=== PATIENT | male | born 1935 | race American Indian/Alaskan Native ===

== ENCOUNTER 2017-02-18 22:10 | Inpatient (IN) | payer MEDICARE ==
--- NOTE | 2017-02-18 22:13 | ED PDOC ---
Arrival/HPI - General Time Seen by Provider: 02/18/17 22:12 Historian: Patient - Critical Care Critical Care Minutes: 30 minutes - History of Present Illness Narrative History of Present Illness (Text): 02/18/17 22:12 63 year old male brought in by EMS with altered mental status. EMS reports patient called EMS to his house for difficulty breathing, answered the door asking for help and collapsed into EMS's arms. Patient arrives to the emergency department non-verbal, altered, with R gaze deviation, and not moving any extremities. Code stroke called on arrival. [id number] Time/Duration: Prior to Arrival Symptom Onset: Sudden Activities at Onset: Light Context: Home Past Medical History - Provider Review Nursing Documentation Reviewed: Yes Family/Social History - Physician Review Nursing Documentation Reviewed: Yes Family/Social History: No Known Family HX Allergies/Home Meds Allergies/Adverse Reactions: Allergies No Known Allergies Allergy (Unverified 02/18/17 22:13) Home Medications: Home Meds Medication Instructions Recorded Confirmed Unobtainable 02/18/17 02/18/17 Review of Systems - Review of Systems Systems not reviewed;Unavailable: Altered Mental Status Physical Exam Vital Signs Reviewed: Yes Vital Signs Temp Pulse Resp BP Pulse Ox 02/19/17 00:00 71 18 135/92 H 98 02/18/17 23:09 162/76 H 02/18/17 22:34 83 18 199/98 H 100 02/18/17 22:32 98.2 F 02/18/17 22:16 80 26 H 246/110 H 100 Temperature: Afebrile Blood Pressure: Hypertensive Pulse: Regular Respiratory Rate: Normal Appearance: Positive for: Other (No movement to sternal rub; Non-verbal) - Systems Exam Head: Present: Atraumatic, Normocephalic Ears: Present: NORMAL TM Mouth: Present: Other (Positive Gag) Respiratory/Chest: Present: Wheezes, Decreased Breath Sounds, Rales. No: Respiratory Distress Cardiovascular: Present: Regular Rate and Rhythm, Normal S1, S2. No: Murmurs Abdomen: Present: Normal Bowel Sounds. No: Tenderness, Distention, Peritoneal Signs Neurological: Present: Other (Right-sided gaze deviation) Medical Decision Making ED Course and Treatment: 02/18/17 22:12 Impression: 63 year old male brought in by EMS presenting with difficulty breathing prior to arrival and AMS on arrival. Plan: -- EKG -- Head CT w/o contrast -- Chest X-ray -- Type and Screen -- Labs -- Reassess and disposition Progress Notes: 02/18/17 22:12 Code Stroke called on patient. 02/18/17 22:[address] Webber, neuro laborer prestressed concrete 02/18/17 22:33 CT shows "No acute intracranial hemorrhage, or suspicious mass effect. Ativan 2mg given due to concern for seizure. On reevaluation after CT, patient is moving bilateral extremities and has slurred speech. Patient pulled out nasal trumpet with right hand and is moving his left arm. EKg shows NSR at 81bpm with 1st degree V block. t wave inversions in lateral leads, unchanged from prior. Trop x 1 negative. Aspirin ordered. 02/18/17 22:[address] Webber, who confirms patient as not a TPA candidate due to ?seizure and no focal deficits. 02/18/17 23:09 Cardene drip started for ?hypertensive encephalopathy. BNP elevated and lasix ordered. Duonebs and steroids given for COPD. After BP normalized, patient is now AAOx3 and reporting that his name is [facility]. Cardene drip discontinued after BP normalized. 02/18/17 23:31 CT Head Without Intravenous Contrast: Dictated and Authenticated by: Yancy Jimenez MD FINDINGS: Brain: No acute intracranial hemorrhage. Age-appropriate periventricular white matter disease. No edema. Ventricles: Age-appropriate ventriculomegaly. Bones: No acute displaced fracture. Sinuses: Unremarkable as visualized. No acute sinusitis. Mastoid air cells: Unremarkable as visualized. No mastoid effusion. IMPRESSION: No acute intracranial hemorrhage, or suspicious mass effect. 02/18/17 23:33 02/18/17 23:[address] Pitts. Will admit to tele to hospitalist for chf and copd, with ? new onset seizure vs hypertensive encephalopathy. Bipap ordered due to abg showing retention. - Lab Interpretations Lab Results: 02/18/17 22:28 02/18/17 22:28 Lab Results 02/18/17 23:08: pCO2 64 H, pO2 258.0 H, HCO3 27.4, ABG pH 7.24 L, ABG Total CO2 29.4 H, ABG O2 Saturation 99.9 H, ABG O2 Content 16.1, ABG Base Excess -1.0, ABG Hemoglobin 11.3 L, ABG Carboxyhemoglobin 1.7 H, POC ABG HHb (Measured) 0.1, ABG Methemoglobin 1.0, ABG O2 Capacity 16.1, Hgb O2 Saturation 97.3, FiO2 40.0 02/18/17 23:03: Urine Opiates Screen Negative, Urine Methadone Screen Negative, Ur Barbiturates Screen Negative, Ur Phencyclidine Scrn Negative, Ur Amphetamines Screen Negative, U Benzodiazepines Scrn Negative, U Oth Cocaine Metabols Negative, U Cannabinoids Screen Negative 02/18/17 23:03: Urine Color Yellow, Urine Appearance Clear, Urine pH 6.0, Ur Specific [place] >= 1.030, Urine Protein 100 H, Urine Glucose (UA) >=1000, Urine Ketones Negative, Urine Blood Trace-intact H, Urine Nitrate Negative, Urine Bilirubin Negative, Urine Urobilinogen 0.2, Ur Leukocyte Esterase Negative , Urine RBC 1 - 3, Urine WBC 0 - 2, Ur Epithelial Cells 0 - 2, Amorphous Sediment Few, Urine Bacteria Mod 02/18/17 23:02: Blood Type O POSITIVE, Antibody Screen Negative, BBK History Checked No verified bt 02/18/17 22:41: Alcohol, Quantitative < 10 02/18/17 22:41: Salicylates < 1 L, Acetaminophen < 10.0 L 02/18/17 22:40: pO2 146 H, VBG pH 7.07 L*, VBG pCO2 84.0 H*, VBG HCO3 24.3, VBG Total CO2 26.9, VBG O2 Sat (Calc) 99.1 H, VBG Base Excess -7.7 L, VBG Potassium 5.2, Glucose 290 H, Lactate 3.4 H, FiO2 21.0, Sodium 134.0, Chloride 101.0, Venous Blood Potassium 5.2 02/18/17 22:28: Sodium 137, Potassium 5.4 H, Chloride 100, Carbon Dioxide 25, Anion Gap 17, BUN 15, Creatinine 1.5, Est GFR ( Amer) 57, Est GFR (Non- Af Amer) 47, Random Glucose 272 H, Calcium 9.3, Phosphorus 5.9 H, Magnesium 2.3 H, Total Bilirubin 0.5, AST 85 H, ALT 82 H, Alkaline Phosphatase 96, Troponin I 0.04, NT-Pro-B Natriuret Pep 4830 H, Total Protein 6.9, Albumin 4.3, Globulin 2.6, Albumin/Globulin Ratio 1.7, Triglycerides 84, Cholesterol 167, LDL Cholesterol Direct 92, HDL Cholesterol 67 H 02/18/17 22:28: PT 11.4, INR 1.04, APTT 28.0 02/18/17 22:28: WBC 7.7, RBC 4.13, Hgb 12.5 L, Hct 37.5 L, MCV 90.8, MCH 30.3, MCHC 33.3, RDW 14.0, Plt Count 370, MPV 9.6, Gran % 51.4, Lymph % (Auto) 33.6, Gila % (Auto) 10.7 H, Eos % (Auto) 3.8, Baso % (Auto) 0.5, Gran # 3.94, Lymph # 2.6, Gila # 0.8 H, Eos # 0.3, Baso # 0.04 I have reviewed the lab results: Yes - RAD Interpretation Radiology Orders: 02/18/17 22:13 CHEST PORTABLE [RAD] Stat 02/18/17 22:14 HEAD W/O (CODE STROKE) [CT] Stat - Medication Orders Current Medication Orders: Discontinued Medications Albuterol/Ipratropium (Duoneb 3 Mg/0.5 Mg (3 Ml) Ud) 3 ml IH STAT STA Stop: 02/18/17 23:18 Last Admin: 02/18/17 23:30 Dose: 3 ml Aspirin (Aspirin Chewable) 324 mg PO STAT STA Stop: 02/18/17 23:21 Last Admin: 02/19/17 00:09 Dose: 324 mg Furosemide (Lasix) 40 mg IVP STAT STA Stop: 02/18/17 23:01 Last Admin: 02/18/17 23:09 Dose: 40 mg MAR Blood Pressure Document 02/18/17 23:09 SC (Rec: 02/18/17 23:10 SC [id number]) Blood Pressure Blood Pressure (100/60-150/90) 162/76 IVP Administration Document 02/18/17 23:09 SC (Rec: 02/18/17 23:10 SC [id number]) Charges for Administration # of IVP Administrations 1 Methylprednisolone (Solu-Medrol) 125 mg IVP STAT STA Stop: 02/18/17 23:18 Last Admin: 02/19/17 00:09 Dose: 125 mg IVP Administration Document 02/19/17 00:09 SC (Rec: 02/19/17 00:09 SC [id number]) Charges for Administration # of IVP Administrations 1 - Scribe Statement The provider has reviewed the documentation as recorded by the Abdulazizibneo Dia Provider Scribe Attestation: All medical record entries made by the Abdulazizibe were at my direction and personally dictated by me. I have reviewed the chart and agree that the record accurately reflects my personal performance of the history, physical exam, medical decision making, and the department course for this patient. I have also personally directed, reviewed, and agree with the discharge instructions and disposition. Disposition/Present on Arrival - Present on Arrival Any Indicators Present on Arrival: No - Disposition Have Diagnosis and Disposition been Completed?: Yes Diagnosis: CHF (congestive heart failure), COPD (chronic obstructive pulmonary disease), Altered mental status Disposition: HOSPITALIZED Disposition Time: 23:33 Patient Plan: Admission Condition: FAIR
[2017-02-18 22:14] VITALS: BMI 25.7
[2017-02-18] MEDS ORDERED: Nicardipine 20 MG/200 ML 20 MG/200 ML BAG IV PRN (22:26)
[2017-02-18 22:32] LABS: BASO # 0.04 K/mm3 (0.0-2.0); BASO % 0.5 % (0.0-3.0); EOS # 0.3 (0.0-0.7); EOS % 3.8 % (1.5-5.0); GRAN # 3.94 (1.4-6.5); GRAN % 51.4 % (50.0-68.0); HEMATOCRIT 37.5 % (42.0-52.0); LYMPH # 2.6 (1.2-3.4); LYMPH % 33.6 % (22.0-35.0); MEAN CELL VOLUME 90.8 fl (80.0-105.0); MEAN CORPUSCULAR HEMOGLOBIN 30.3 pg (25.0-35.0); MEAN CORPUSCULAR HGB CONC 33.3 g/dl (31.0-37.0); MEAN PLATELET VOLUME 9.6 fl (7.0-11.0); MONO # 0.8 (0.1-0.6); MONO % 10.7 % (1.0-6.0); WHITE BLOOD COUNT 7.7 10^3/ul (4.5-11.0)
--- NOTE | 2017-02-18 22:33 | CT ---
EXAM: CT Head Without Intravenous Contrast CLINICAL HISTORY: 63 years old, male; Signs and symptoms; Other: Code stroke; Additional info: AMS TECHNIQUE: Axial computed tomography images of the head/brain without intravenous contrast. All CT scans at this facility use one or more dose reduction techniques, viz.: automated exposure control; ma/kV adjustment per patient size (including targeted exams where dose is matched to indication; i.e. head); or iterative reconstruction technique. COMPARISON: No relevant prior studies available. Examination is markedly limited by significant amount of motion artifact. FINDINGS: Brain: No acute intracranial hemorrhage. Age-appropriate periventricular white matter disease. No edema. Ventricles: Age-appropriate ventriculomegaly. Bones: No acute displaced fracture. Sinuses: Unremarkable as visualized. No acute sinusitis. Mastoid air cells: Unremarkable as visualized. No mastoid effusion. IMPRESSION: No acute intracranial hemorrhage, or suspicious mass effect.
[2017-02-18] MEDS ORDERED: Albuterol-Ipratrop 3 mg / 0.5 (3 ml) UD ONE (22:42)
[2017-02-18 22:43] LABS: ALB/GLOB RATIO 1.7 (1.1-1.8); BILIRUBIN,TOTAL 0.5 mg/dL (0.2-1.3); CALCIUM 9.3 mg/dL (8.4-10.5); MAGNESIUM 2.3 mg/dL (1.7-2.2); PHOSPHOROUS 5.9 mg/dL (2.5-4.5); POTASSIUM 5.4 mmol/L (3.6-5.0); TOTAL PROTEIN 6.9 g/dL (5.8-8.3)
[2017-02-18 22:44] LABS: VENOUS BLOOD GAS BASE EXCESS -7.7 mmol/L (0.0-2.0)
[2017-02-18 22:49] LABS: VENOUS BLOOD PH 7.07 (7.32-7.43)
[2017-02-18 22:53] LABS: TROPONIN I 0.04 ng/mL
[2017-02-18 23:00] LABS: INR 1.04 (0.93-1.08)
[2017-02-18 23:11] LABS: URINE BILIRUBIN NEGATIVE (NEGATIVE); URINE BLOOD TRACE-INTACT (NEGATIVE); URINE GLUCOSE (UA) >=1000 mg/dL (NEGATIVE); URINE KETONE NEGATIVE (NEGATIVE); URINE LEUKOCYTE ESTERASE NEGATIVE Leu/uL (NEGATIVE); URINE PROTEIN 100 mg/dL (<30 mg/dL); URINE UROBILINOGEN 0.2 E.U./dL (<1 E.U./dL)
[2017-02-18 23:12] LABS: ARTERIAL BLOOD GAS HCO3 27.4 mmol/L (21-28); ARTERIAL BLOOD GAS O2 CAPACITY 16.1 mL/dl (16-24); ARTERIAL BLOOD GAS O2 CONTENT 16.1 ML/dl (15-23); ARTERIAL BLOOD GAS PH 7.24 (7.35-7.45); ARTERIAL BLOOD HGB O2 SAT 97.3 % (95.0-98.0); CARBOXYHEMOGLOBIN 1.7 % (0.5-1.5); HHB 0.1 % (0-5)
[2017-02-18 23:15] LABS: URINE APPEARANCE CLEAR (CLEAR); URINE COLOR YELLOW (YELLOW)
[2017-02-18] MEDS ORDERED: Albuterol-Ipratrop 3 mg / 0.5 (3 ml) UD IH STA (23:17)
[2017-02-18 23:46] LABS: URINE BACTERIA MOD (NEG); URINE EPITHELIAL CELLS 0 - 2 /hpf (0-5); URINE WBC 0 - 2 /hpf (0-6)
[2017-02-18 23:47] LABS: URINE AMORPHOUS SEDIMENT FEW
[2017-02-19] MEDS ORDERED: Albuterol-Ipratrop 3 mg / 0.5 (3 ml) UD IH PRN (01:16)
[2017-02-19] MEDS ORDERED: Dextrose 50% SYRINGE Inj (50 ml) IVP ONE (01:16)
[2017-02-19] MEDS ORDERED: Insulin Regular 1 UNITS/0.01 ML ML IVP ONE (01:31)
[2017-02-19 02:48] LABS: VENOUS BLOOD GAS BASE EXCESS 2.8 mmol/L (0.0-2.0); VENOUS BLOOD PH 7.28 (7.32-7.43)
[2017-02-19] MEDS: Albuterol-Ipratrop 3 mg / 0.5 (3 ml) UD IH SCH ×2 (03:37→07:26)
[2017-02-19 04:56] LABS: ARTERIAL BLOOD GAS HCO3 27.8 mmol/L (21-28); ARTERIAL BLOOD GAS O2 CAPACITY 15.1 mL/dl (16-24); ARTERIAL BLOOD GAS PH 7.38 (7.35-7.45); CARBOXYHEMOGLOBIN 1.7 % (0.5-1.5); HHB 0.9 % (0-5); METHEMOGLOBIN 1.4 % (0.0-3.0)
[2017-02-19] MEDS: Levothyroxine 75 MCG TAB PO SCH (05:44)
--- NOTE | 2017-02-19 06:26 | CP.PCM.HP ---
<LIZETTE FLOWERS - Last Filed: 02/19/17 06:13> History of Present Illness - History of Present Illness History of Present Illness: CC: SOB Pt is an 81 yo male with PMH of HTN, COPD on O2, HLD, DM, CHF, osteomyelitis, NSTEMI, and prostatic CA brought to ED via EMS for SOB and possible syncope. Pt states that he was at home watching TV when he became short of breath. He called 911, on response EMS noted that he collapsed into their arm's on the arrival. EMS transferred pt to [facility]. In the ED, pt was noted to be non-verbal, altered, with right gaze deviation, and not moving any extremities. Code stroke was called on arrival. CT scan was negative. However, due to concern of seizure Ativan was given. At this point, pt was moving extremities and had slurred speech. Pt was not a candidate for TPA due questionable seizure and no focal deficits. There was a concern for hypertensive encephalopathy and so the patient was started on cardene drip. At time of interview, patient was able to answer questions appropriately. Pt does not recall being transferred to and arriving to the ED. But does remember calling 911 and being SOB. Pt denied CP, nausea, vomiting, diarrhea, constipation, fever, chills, PERKINS, fatigue, or dysuria. 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 Past Patient History - Past Social History Smoking Status: Former Smoker - CARDIAC Hx Cardiac Disorders: Yes Hx Congestive Heart Failure: Yes Hx Hypercholesterolemia: Yes Hx Hypertension: Yes Hx Peripheral Vascular Disease: Yes - PULMONARY Hx Chronic Obstructive Pulmonary Disease (COPD): Yes - ENDOCRINE/METABOLIC Hx Endocrine Disorders: Yes Hx Diabetes Mellitus Type 2: Yes Hx Hypothyroidism: Yes - MUSCULOSKELETAL/RHEUMATOLOGICAL Hx Musculoskeletal Disorders: Yes Hx Falls: No - GENITOURINARY/GYNECOLOGICAL Hx Prostate Problems: Yes (Prostate CA) - PSYCHIATRIC Hx Substance Use: No Meds Allergies/Adverse Reactions: Allergies Allergy/AdvReac Type Severity Reaction Status Date / Time No Known Allergies Allergy Unverified 02/18/17 22:13 Physical Exam - Constitutional Appears: No Acute Distress - Head Exam Head Exam: ATRAUMATIC, NORMOCEPHALIC - Eye Exam Eye Exam: EOMI, PERRL - ENT Exam ENT Exam: Mucous Membranes Dry - Neck Exam Neck exam: Positive for: Full Rom. Negative for: Lymphadenopathy, Tenderness, Thyromegaly - Respiratory Exam Respiratory Exam: Rales (bibaslar). absent: Accessory Muscle Use, Rhonchi, Wheezes, Respiratory Distress - Cardiovascular Exam Cardiovascular Exam: RRR, +S1, +S2. absent: Diastolic murmur, Gallop, Rubs, Systolic Murmur - GI/Abdominal Exam GI & Abdominal Exam: Soft. absent: Distended, Guarding, Organomegaly, Rebound, Tenderness - Exam Additional comments: [place] in place with clear yellow urine 100cc - Extremities Exam Extremities exam: Positive for: normal inspection - Neurological Exam Neurological exam: Alert, Oriented x3 - Psychiatric Exam Psychiatric exam: Normal Affect, Normal Mood - Skin Skin Exam: Dry, Intact, Normal Color, Warm Results - Vital Signs Recent Vital Signs: Last Vital Signs Temp 98.2 F 02/18/17 22:32 Pulse 70 02/19/17 05:51 Resp 20 02/19/17 03:15 BP 187/90 H 02/19/17 05:51 Pulse Ox 99 02/19/17 03:38 - Labs Result Diagrams: 02/18/17 22:28 02/18/17 22:28 Labs: Laboratory Results - last 24 hr 02/19/17 02/19/17 02:35 04:53 pCO2 47 H pO2 25 L 160.0 H HCO3 27.8 ABG pH 7.38 ABG Total CO2 29.2 H ABG O2 Saturation 99.1 H ABG O2 Content 15.0 ABG Base Excess 2.1 ABG Hemoglobin 10.9 L ABG Carboxyhemoglobin 1.7 H POC ABG HHb (Measured) 0.9 ABG Methemoglobin 1.4 ABG O2 Capacity 15.1 L VBG pH 7.28 L VBG pCO2 67.0 H* VBG HCO3 31.5 H VBG Total CO2 33.6 H VBG O2 Sat (Calc) 51.7 VBG Base Excess 2.8 H VBG Potassium 4.6 Hgb O2 Saturation 96.0 Sodium 134.0 Chloride 100.0 Glucose 288 H Lactate 1.8 FiO2 21.0 40.0 Venous Blood Potassium 4.6 Assessment & Plan - Assessment and Plan (Free Text) Assessment: 81 yo M with PMH of HTN, COPD on O2, HLD, DM, CHF, osteomyelitis, NSTEMI, and prostate CA will be admitted for treatment and evaluation for HTN urgency, COPD exacerbation, and CHF exacerbation. Plan: 1. HTN Urgency - Hydralazine prn - Cont Home meds: Clonidine, Norvasc, Chlorthalidone 2. COPD Exacerbation - Respiratory acidosis: pH 7.24, pO2 258, pCO2 64, HCO3 27.4 - Duoneb q2 prn, q6 divya - No steroids at this time - F/u ABG in AM - BIPAP, consider d/c if ABG is good and switch to NC 3. CHF - BNP 4830 - F/u Echo - Lasix 40 IVP daily - Troponin 0.04, f/u trend x2 - Cardiology consulted 4. Hyperkalemia - K 5.4 - Insulin 10 units IVP x1 - D50 50 mL IVP x1 - Cont to monitor and replete as needed 5. DM - Hold PO meds - ISS - Accuchecks ACHS 6. Transaminitis - Cont to monitor 7. H/O Hypothyroidism - Cont Levothyroxine - F/u TSH, Free T4 8. H/O NSTEMI, HLD - Cont Plavix, Lipitor GI/DVT PPx - Heparin - Protonix Pt seen and discussed in detail with Dr. Pitts. Mustapha Flowers, PGY1 <Daniel Pitts Q - Last Filed: 02/19/17 07:21> Results - Vital Signs Recent Vital Signs: Last Vital Signs Temp 97 F L 02/19/17 06:00 Pulse 82 02/19/17 06:00 Resp 19 02/19/17 06:00 BP 192/78 H 02/19/17 06:00 Pulse Ox 100 02/19/17 06:00 - Labs Result Diagrams: 02/18/17 22:28 02/18/17 22:28 Labs: Laboratory Results - last 24 hr 02/19/17 02/19/17 02/19/17 02:35 04:53 06:16 pCO2 47 H pO2 25 L 160.0 H HCO3 27.8 ABG pH 7.38 ABG Total CO2 29.2 H ABG O2 Saturation 99.1 H ABG O2 Content 15.0 ABG Base Excess 2.1 ABG Hemoglobin 10.9 L ABG Carboxyhemoglobin 1.7 H POC ABG HHb (Measured) 0.9 ABG Methemoglobin 1.4 ABG O2 Capacity 15.1 L VBG pH 7.28 L VBG pCO2 67.0 H* VBG HCO3 31.5 H VBG Total CO2 33.6 H VBG O2 Sat (Calc) 51.7 VBG Base Excess 2.8 H VBG Potassium 4.6 Hgb O2 Saturation 96.0 Sodium 134.0 Chloride 100.0 Glucose 288 H Lactate 1.8 FiO2 21.0 40.0 Lactate Dehydrogenase 955 H Total Creatine Kinase 181 Venous Blood Potassium 4.6 Attending/Attestation - Attestation I have personally seen and examined this patient.: Yes I have fully participated in the care of the patient.: Yes I have reviewed all pertinent clinical information: Yes
[2017-02-19 06:49] LABS: TROPONIN I 0.04 ng/mL
[2017-02-19] MEDS: Insulin Lispro (humaLOG) LOW Coverage SC SCH ×4 (08:47→22:50)
--- NOTE | 2017-02-19 08:52 | RAD ---
HISTORY: altered COMPARISON: No prior. FINDINGS: LUNGS: No active pulmonary disease. PLEURA: No significant pleural effusion identified, no pneumothorax apparent. CARDIOVASCULAR: Normal. OSSEOUS STRUCTURES: No significant abnormalities. VISUALIZED UPPER ABDOMEN: Normal. OTHER FINDINGS: None. IMPRESSION: No active disease.
--- NOTE | 2017-02-19 10:48 | MRI ---
PROCEDURE: MRI BRAIN WITHOUT CONTRAST HISTORY: TIA COMPARISON: None. TECHNIQUE: Multiplanar, multisequence MR images of the brain were obtained without intravenous contrast enhancement. FINDINGS: HEMORRHAGE: None DWI: No evidence of an acute or early subacute infarction. BRAIN PARENCHYMA: No mass effect or edema. Chronic microvascular changes are seen in the periventricular white matter VENTRICLES: Unremarkable. No hydrocephalus. CRANIUM: Unremarkable. ORBITS: Grossly unremarkable. PARANASAL SINUSES/MASTOIDS: Clear VASCULAR SYSTEM: Skull base flow voids intact. OTHER FINDINGS: None. IMPRESSION: No acute intracranial findings.
[2017-02-19 13:00] LABS: TROPONIN I 0.03 ng/mL
--- NOTE | 2017-02-19 16:39 | CON ---
DATE: 02/19/2017 HISTORY OF PRESENT ILLNESS: The patient is a 81-year-old male who presented with 2 days of sudden onset of shortness of breath. Plus/minus chest pain was noted. PAST MEDICAL HISTORY: The patient's past medical history is notable for diabetes mellitus and hypertension. The patient states he has a documented history of peripheral vascular disease in which they have undergone angioplasty of the lower extremities. His breathing is now better. SOCIAL HISTORY: He is a former smoker. REVIEW OF SYSTEMS: A 14-point review of systems was reviewed in detail. Other than the shortness of breath, no other cardiac symptomatology was noted. PHYSICAL EXAMINATION: VITAL SIGNS: Blood pressure is 180/75, heart rate is in the 80s. NECK: Negative JVD. LUNGS: Without rales. HEART: Reveals S1 and S2. EXTREMITIES: Without edema. LABORATORIES DATA: Includes an EKG that shows diffuse ST-T wave inversions. BUN is 15, creatinine is 1.5. Troponins is 0.04 with an elevated pro-BNP. The hemoglobin is 12.5. IMPRESSION: 1. Dyspnea. 2. Acute diastolic congestive heart failure. 3. Non-ST segment elevation myocardial infarction. 4. Anginal equivalent. 5. Diabetes mellitus. 6. Hypertension. 7. Left ventricular hypertrophy. Echocardiogram done today reveals normal LV systolic function with LVH with aortic valve sclerosis without stenosis. PLAN: Given these findings, we will start the patient on aspirin and Plavix. The patient is on subcu heparin. I have discussed with the patient the high probability for CAD. We will treat with anticoagulants. We will add beta-blockers to the regimen. We will schedule for cardiac catheterization on Wednesday morning. Micheal Sanabria MD
--- NOTE | 2017-02-19 18:32 | CARD ---
APPROVED REPORT EXAM: Two-dimensional and M-mode echocardiogram with Doppler and color Doppler. INDICATION Congestive Heart Failure 2D DIMENSIONS Left Atrium (2D)4.2 (1.6-4.0cm)IVSd1.2 (0.7-1.1cm) LVDd3.9 (3.9-5.9cm)PWd1.4 (0.7-1.1cm) LVDs2.6 (2.5-4.0cm)FS (%) 32.1 % LVEF (%)61.0 (>50%) M-Mode DIMENSIONS Aortic Root3.60 (2.2-3.7cm)Aortic Cusp Exc.1.30 (1.5-2.0cm) Aortic Valve AoV Peak Aigssenh745.0cm/sAoV VTI28.6cmAO Peak GR.12mmHg LVOT Peak Ptfdwctc581.0cm/sLVOT VTI20.40cmAO Mean GR.7mmHg Mitral Valve E/A ratio0.0 TDI E/Lateral E'0.0E/Medial E'0.0 Pulmonary Valve PV Peak Oyodliqb45.5cm/sPV Peak Grad.4mmHg Tricuspid Valve TR Peak [id number]/sRAP [id number] Peak Gr.18mmHg [id number] LEFT VENTRICLE The left ventricle is normal size. There is borderline concentric left ventricular hypertrophy. The left ventricular function is normal. The left ventricular ejection fraction is within the normal range. There is normal LV segmental wall motion. RIGHT VENTRICLE The right ventricle is normal size. There is normal right ventricular wall thickness. The right ventricular systolic function is normal. ATRIA The left atrium is borderline dilated. The right atrium size is normal. AORTIC VALVE The aortic valve is moderately sclerotic. There is trace valvular aortic stenosis. MITRAL VALVE The mitral valve is moderately thickened. There is no mitral valve regurgitation noted. There is no mitral valve stenosis. TRICUSPID VALVE The tricuspid valve is normal in structure. GREAT VESSELS The aortic root displays moderate sclerocalcific changes of the aortic root. PERICARDIAL EFFUSION There is a trace loculated anterior pericardial effusion. <Conclusion> The left ventricle is normal size. There is borderline concentric left ventricular hypertrophy. The left ventricular function is normal. The left ventricular ejection fraction is within the normal range. There is normal LV segmental wall motion. The aortic valve is moderately sclerotic.
--- NOTE | 2017-02-19 23:00 | CARD ---
APPROVED REPORT EKG Measurement Heart [id number] <Conclusion> Sinus rhythm with 1st degree AV block Possible Left atrial enlargement ST & T wave abnormality, consider lateral ischemia Abnormal ECG
[2017-02-20] MEDS: Levothyroxine 75 MCG TAB PO SCH (06:26)
[2017-02-20] MEDS: Insulin Lispro (humaLOG) LOW Coverage SC SCH ×4 (07:58→21:43)
[2017-02-20 08:03] LABS: HEMATOCRIT 34.9 % (42.0-52.0); MEAN CELL VOLUME 86.8 fl (80.0-105.0); MEAN CORPUSCULAR HEMOGLOBIN 29.9 pg (25.0-35.0); MEAN CORPUSCULAR HGB CONC 34.4 g/dl (31.0-37.0); MEAN PLATELET VOLUME 9.7 fl (7.0-11.0); WHITE BLOOD COUNT 11.3 10^3/ul (4.5-11.0)
[2017-02-20 08:34] LABS: ALB/GLOB RATIO 1.5 (1.1-1.8); BILIRUBIN,TOTAL 0.6 mg/dL (0.2-1.3); CALCIUM 9.5 mg/dL (8.4-10.5); MAGNESIUM 1.9 mg/dL (1.7-2.2); PHOSPHOROUS 3.5 mg/dL (2.5-4.5); POTASSIUM 4.3 mmol/L (3.6-5.0)
[2017-02-20 08:45] LABS: FREE T4 1.28 ng/dL (0.78-2.19)
[2017-02-20 08:59] LABS: THYROID STIMULATING HORMONE 4.29 mIU/mL (0.46-4.68)
--- NOTE | 2017-02-20 12:46 | CP.PCM.PN ---
<Roque Raya - Last Filed: 02/20/17 12:38> Subjective - Date & Time of Evaluation Date of Evaluation: 02/20/17 Time of Evaluation: 08:20 - Subjective Subjective: Medicine Progress Note: Pt seen and examined at bedside. No Acute events overnight. Pt is still hypertensive to systolic of 170-190 but with no complaints at this time. Pt denies any headaches, dizziness, visula changes, f/c, sob, palpitations, cp, abd pain, n/v/d. Objective - Vital Signs/Intake and Output Vital Signs (last 24 hours): Temp Pulse Resp BP Pulse Ox 97.6 F 64 20 171/67 H 98 02/20/17 06:00 02/20/17 12:35 02/20/17 06:00 02/20/17 12:35 02/20/17 06:00 Intake and Output: 02/20/17 02/20/17 06:59 18:59 Intake Total 1450 Output Total 800 Balance 650 - Medications Medications: Current Medications Albuterol/Ipratropium (Duoneb 3 Mg/0.5 Mg (3 Ml) Ud) 3 ml IH Q2H PRN PRN Reason: Shortness of Breath Amlodipine Besylate (Norvasc) 10 mg PO DAILY [facility] Last Admin: 02/20/17 09:32 Dose: 10 mg Aspirin (Aspirin Chewable) 81 mg PO DAILY [facility] Last Admin: 02/20/17 09:32 Dose: 81 mg Atorvastatin Calcium (Lipitor) 20 mg PO DIN [facility] Last Admin: 02/19/17 16:52 Dose: 20 mg Chlorthalidone (Hygroton) 50 mg PO DAILY [facility] Last Admin: 02/20/17 09:32 Dose: 50 mg Clonidine HCl (Catapres) 0.1 mg PO TID [facility] Last Admin: 02/20/17 09:31 Dose: 0.1 mg Clopidogrel Bisulfate (Plavix) 75 mg PO DAILY [facility] Last Admin: 02/20/17 09:32 Dose: 75 mg Furosemide (Lasix) 40 mg IVP DAILY [facility] Last Admin: 02/20/17 09:33 Dose: 40 mg Heparin Sodium (Porcine) (Heparin) 5,000 units SC Q12 DIVYA PRN Reason: Protocol Last Admin: 02/20/17 09:33 Dose: 5,000 units Hydralazine HCl (Apresoline) 10 mg IVP Q6 PRN PRN Reason: Systolic Blood Pressure Last Admin: 02/20/17 06:26 Dose: 10 mg Insulin Human Lispro (Humalog Low) 0 units SC ACHS [facility] PRN Reason: Protocol Last Admin: 02/20/17 12:35 Dose: 3 units Levothyroxine Sodium (Synthroid) 75 mcg PO 0600 [facility] Last Admin: 02/20/17 06:26 Dose: 75 mcg Metoprolol Tartrate (Lopressor) 50 mg PO BID [facility] Last Admin: 02/20/17 09:32 Dose: 50 mg - Labs Labs: 02/20/17 07:59 02/20/17 07:59 PT 11.4 SECONDS (9.4-12.5) 02/18/17 22:28 INR 1.04 (0.93-1.08) 02/18/17 22:28 APTT 28.0 Seconds (25.1-36.5) 02/18/17 22:28 - Constitutional Appears: No Acute Distress - Head Exam Head Exam: ATRAUMATIC, NORMOCEPHALIC - Eye Exam Eye Exam: EOMI Pupil Exam: PERRL - Respiratory Exam Respiratory Exam: Clear to Ausculation Bilateral. absent: Rales, Rhonchi, Wheezes - Cardiovascular Exam Cardiovascular Exam: REGULAR RHYTHM, +S1, +S2 - GI/Abdominal Exam GI & Abdominal Exam: Soft. absent: Tenderness - Extremities Exam Extremities Exam: absent: Calf Tenderness, Pedal Edema - Neurological Exam Neurological Exam: Alert, Awake, Oriented x3 - Psychiatric Exam Psychiatric exam: Normal Affect, Normal Mood - Skin Skin Exam: Dry, Intact, Warm Assessment and Plan - Assessment and Plan (Free Text) Assessment: 81 yo M with PMH of HTN, COPD on O2, HLD, DM, CHF, osteomyelitis, NSTEMI, and prostate CA will be admitted for treatment and evaluation for HTN urgency, COPD exacerbation, and CHF exacerbation. Plan: 1. HTN Urgency - Systolic elevated at 170-190 - Hydralazine prn - Cont Home meds: Clonidine, Norvasc, Chlorthalidone 2. COPD Exacerbation - Stable - Duoneb q2 prn, q6 divya 3. CHF - BNP 4830 - F/u Echo - Normal EF - Lasix 40 IVP daily - Troponin 0.04---.03---.03 - Cardiology consulted - due to significant cardiac hx will take for cath on Wednesday 4. Hyperkalemia - resolved - Cont to monitor and replete as needed 5. DM - ISS - Accuchecks ACHS 6. Transaminitis - Cont to monitor 7. Hx of Hypothyroidism - Cont home Levothyroxine 8. H/O NSTEMI, HLD - Cont Plavix, Lipitor - As per card- Cardiac cath on Wednesday 9. GI/DVT PPx - Heparin - Protonix Pt and plan was seen, reviewed and discussed in detail with Dr Guan. <Karin Guan - Last Filed: 02/21/17 13:00> Objective - Vital Signs/Intake and Output Vital Signs (last 24 hours): Temp Pulse Resp BP Pulse Ox 97.8 F 78 20 120/50 L 99 02/21/17 12:00 02/21/17 12:00 02/21/17 12:00 02/21/17 12:00 02/21/17 06:00 Intake and Output: 02/21/17 02/21/17 06:59 18:59 Intake Total 300 Balance 300 - Medications Medications: Current Medications Acetaminophen (Tylenol 325mg Tab) 650 mg PO Q6H PRN PRN Reason: Pain, moderate (4-7) Last Admin: 02/21/17 10:16 Dose: 650 mg Albuterol/Ipratropium (Duoneb 3 Mg/0.5 Mg (3 Ml) Ud) 3 ml IH Q2H PRN PRN Reason: Shortness of Breath Last Admin: 02/20/17 19:33 Dose: 3 ml Amlodipine Besylate (Norvasc) 10 mg PO DAILY [facility] Last Admin: 02/21/17 10:00 Dose: 10 mg Aspirin (Aspirin Chewable) 81 mg PO DAILY [facility] Last Admin: 02/21/17 09:59 Dose: 81 mg Atorvastatin Calcium (Lipitor) 20 mg PO DIN [facility] Last Admin: 02/20/17 17:31 Dose: 20 mg Chlorthalidone (Hygroton) 50 mg PO DAILY [facility] Last Admin: 02/21/17 09:56 Dose: 50 mg Clonidine HCl (Catapres) 0.1 mg PO TID [facility] Last Admin: 02/21/17 10:00 Dose: 0.1 mg Clopidogrel Bisulfate (Plavix) 75 mg PO DAILY [facility] Last Admin: 02/21/17 10:00 Dose: 75 mg Furosemide (Lasix) 40 mg IVP DAILY [facility] Last Admin: 02/21/17 09:55 Dose: 40 mg Heparin Sodium (Porcine) (Heparin) 5,000 units SC Q12 DIVYA PRN Reason: Protocol Last Admin: 02/21/17 09:56 Dose: 5,000 units Hydralazine HCl (Apresoline) 10 mg IVP Q6 PRN PRN Reason: Systolic Blood Pressure Last Admin: 02/20/17 06:26 Dose: 10 mg Insulin Human Lispro (Humalog Low) 0 units SC ACHS [facility] PRN Reason: Protocol Last Admin: 02/21/17 12:11 Dose: 3 units Levothyroxine Sodium (Synthroid) 75 mcg PO 0600 [facility] Last Admin: 02/21/17 05:16 Dose: 75 mcg Metoprolol Tartrate (Lopressor) 50 mg PO BID [facility] Last Admin: 02/21/17 09:59 Dose: 50 mg - Labs Labs: 02/21/17 07:35 02/21/17 07:35 PT 11.4 SECONDS (9.4-12.5) 02/18/17 22:28 INR 1.04 (0.93-1.08) 02/18/17 22:28 APTT 28.0 Seconds (25.1-36.5) 02/18/17 22:28 Attending/Attestation - Attestation I have personally seen and examined this patient.: Yes I have fully participated in the care of the patient.: Yes I have reviewed all pertinent clinical information, including history, physical exam and plan: Yes Notes (Text): 02/21/17 12:57 Patient was seen and examined with medical videographer. Agreed with resident assessment and plan. 81 yo M with PMH of HTN, COPD on O2, HLD, DM, CHF, , NSTEMI, and prostate CA was admitted with change of mental status, HTN urgency, CHF exacerbation, .Mental status is back to normal,Patient is on room air.There is no sign of over CHF.He is lying down flat.We will change lasix to PO. Blood pressure is running high, will increase metoprolol dose to 50 mg BID. Patient renal functions are stable. Management plan was discussed in detail with patient Education was provided.
[2017-02-21] MEDS: Levothyroxine 75 MCG TAB PO SCH (05:16)
[2017-02-21 07:52] LABS: HEMATOCRIT 35.8 % (42.0-52.0); MEAN CELL VOLUME 87.5 fl (80.0-105.0); MEAN CORPUSCULAR HEMOGLOBIN 29.6 pg (25.0-35.0); MEAN CORPUSCULAR HGB CONC 33.8 g/dl (31.0-37.0); MEAN PLATELET VOLUME 9.2 fl (7.0-11.0)
[2017-02-21 07:54] LABS: ALB/GLOB RATIO 1.5 (1.1-1.8); BILIRUBIN,TOTAL 0.5 mg/dL (0.2-1.3); CALCIUM 9.8 mg/dL (8.4-10.5); POTASSIUM 4.4 mmol/L (3.6-5.0); TOTAL PROTEIN 6.7 g/dL (5.8-8.3)
[2017-02-21] MEDS: Insulin Lispro (humaLOG) LOW Coverage SC SCH ×4 (08:13→22:58)
--- NOTE | 2017-02-21 10:57 | CP.PCM.PN ---
<Roque Raya - Last Filed: 02/21/17 10:53> Subjective - Date & Time of Evaluation Date of Evaluation: 02/21/17 Time of Evaluation: 08:10 - Subjective Subjective: Medicine Progress Note: Pt seen and examined at bedside. No Acute events overnight. C/o of L sided hip due to his ostearthritis. HTN has improved. Denies any headaches, dizziness, visula changes, f/c, sob, palpitations, cp, abd pain, n/v/d. Objective - Vital Signs/Intake and Output Vital Signs (last 24 hours): Temp Pulse Resp BP Pulse Ox 98.9 F 81 20 150/69 99 02/21/17 06:00 02/21/17 10:00 02/21/17 06:00 02/21/17 10:00 02/21/17 06:00 Intake and Output: 02/21/17 02/21/17 06:59 18:59 Intake Total 300 Balance 300 - Medications Medications: Current Medications Acetaminophen (Tylenol 325mg Tab) 650 mg PO Q6H PRN PRN Reason: Pain, moderate (4-7) Last Admin: 02/21/17 10:16 Dose: 650 mg Albuterol/Ipratropium (Duoneb 3 Mg/0.5 Mg (3 Ml) Ud) 3 ml IH Q2H PRN PRN Reason: Shortness of Breath Last Admin: 02/20/17 19:33 Dose: 3 ml Amlodipine Besylate (Norvasc) 10 mg PO DAILY [facility] Last Admin: 02/21/17 10:00 Dose: 10 mg Aspirin (Aspirin Chewable) 81 mg PO DAILY [facility] Last Admin: 02/21/17 09:59 Dose: 81 mg Atorvastatin Calcium (Lipitor) 20 mg PO DIN [facility] Last Admin: 02/20/17 17:31 Dose: 20 mg Chlorthalidone (Hygroton) 50 mg PO DAILY [facility] Last Admin: 02/21/17 09:56 Dose: 50 mg Clonidine HCl (Catapres) 0.1 mg PO TID [facility] Last Admin: 02/21/17 10:00 Dose: 0.1 mg Clopidogrel Bisulfate (Plavix) 75 mg PO DAILY [facility] Last Admin: 02/21/17 10:00 Dose: 75 mg Furosemide (Lasix) 40 mg IVP DAILY [facility] Last Admin: 02/21/17 09:55 Dose: 40 mg Heparin Sodium (Porcine) (Heparin) 5,000 units SC Q12 DIVYA PRN Reason: Protocol Last Admin: 02/21/17 09:56 Dose: 5,000 units Hydralazine HCl (Apresoline) 10 mg IVP Q6 PRN PRN Reason: Systolic Blood Pressure Last Admin: 02/20/17 06:26 Dose: 10 mg Insulin Human Lispro (Humalog Low) 0 units SC ACHS [facility] PRN Reason: Protocol Last Admin: 02/21/17 08:13 Dose: 1 units Levothyroxine Sodium (Synthroid) 75 mcg PO 0600 [facility] Last Admin: 02/21/17 05:16 Dose: 75 mcg Metoprolol Tartrate (Lopressor) 50 mg PO BID [facility] Last Admin: 02/21/17 09:59 Dose: 50 mg - Labs Labs: 02/21/17 07:35 02/21/17 07:35 PT 11.4 SECONDS (9.4-12.5) 02/18/17 22:28 INR 1.04 (0.93-1.08) 02/18/17 22:28 APTT 28.0 Seconds (25.1-36.5) 02/18/17 22:28 - Constitutional Appears: No Acute Distress - Head Exam Head Exam: ATRAUMATIC, NORMOCEPHALIC - Eye Exam Eye Exam: EOMI, PERRL - ENT Exam ENT Exam: Mucous Membranes Moist - Respiratory Exam Respiratory Exam: Clear to Ausculation Bilateral. absent: Rales, Wheezes - Cardiovascular Exam Cardiovascular Exam: REGULAR RHYTHM, RRR, +S1, +S2 - GI/Abdominal Exam GI & Abdominal Exam: Soft. absent: Tenderness - Extremities Exam Extremities Exam: absent: Calf Tenderness, Pedal Edema - Neurological Exam Neurological Exam: Alert, Awake, Oriented x3 - Psychiatric Exam Psychiatric exam: Normal Affect, Normal Mood - Skin Skin Exam: Dry, Intact, Warm Assessment and Plan - Assessment and Plan (Free Text) Assessment: 81 yo M with PMH of HTN, COPD on O2, HLD, DM, CHF, osteomyelitis, NSTEMI, and prostate CA will be admitted for treatment and evaluation for HTN urgency, COPD exacerbation, and CHF exacerbation. Plan for Cardiac cath bere. Plan: 1. HTN Urgency - Systolic has improved to 150/69 - Cont Hydralazine prn - Cont Home meds: Clonidine, Norvasc, Chlorthalidone 2. COPD Exacerbation - Stable - Duoneb q2 prn, q6 divya 3. CHF - BNP 4830 - F/u Echo - Normal EF - Lasix 40 IVP daily - Troponin 0.04---.03---.03 - Cardiology consulted - due to significant cardiac hx will plan for Cardiac cath on Wednesday 4. Hyperkalemia - resolved - Cont to monitor and replete as needed 5. DM - ISS - Accuchecks ACHS 6. Transaminitis - Improved - Cont to monitor 7. Hx of Hypothyroidism - Cont home Levothyroxine 8. H/O NSTEMI, HLD - Cont Plavix, Lipitor - As per card- Cardiac cath on Wednesday 9. Hx of L hip pain - Tylenol PRN 10. GI/DVT PPx - Heparin - Protonix Pt and plan was seen, reviewed and discussed in detail with Dr Guan. <Karin Guan - Last Filed: 02/21/17 13:03> Objective - Vital Signs/Intake and Output Vital Signs (last 24 hours): Temp Pulse Resp BP Pulse Ox 97.8 F 78 20 120/50 L 99 02/21/17 12:00 02/21/17 12:00 02/21/17 12:00 02/21/17 12:00 02/21/17 06:00 Intake and Output: 02/21/17 02/21/17 06:59 18:59 Intake Total 300 Balance 300 - Medications Medications: Current Medications Acetaminophen (Tylenol 325mg Tab) 650 mg PO Q6H PRN PRN Reason: Pain, moderate (4-7) Last Admin: 02/21/17 10:16 Dose: 650 mg Albuterol/Ipratropium (Duoneb 3 Mg/0.5 Mg (3 Ml) Ud) 3 ml IH Q2H PRN PRN Reason: Shortness of Breath Last Admin: 02/20/17 19:33 Dose: 3 ml Amlodipine Besylate (Norvasc) 10 mg PO DAILY [facility] Last Admin: 02/21/17 10:00 Dose: 10 mg Aspirin (Aspirin Chewable) 81 mg PO DAILY [facility] Last Admin: 02/21/17 09:59 Dose: 81 mg Atorvastatin Calcium (Lipitor) 20 mg PO DIN [facility] Last Admin: 02/20/17 17:31 Dose: 20 mg Chlorthalidone (Hygroton) 50 mg PO DAILY [facility] Last Admin: 02/21/17 09:56 Dose: 50 mg Clonidine HCl (Catapres) 0.1 mg PO TID [facility] Last Admin: 02/21/17 10:00 Dose: 0.1 mg Clopidogrel Bisulfate (Plavix) 75 mg PO DAILY [facility] Last Admin: 02/21/17 10:00 Dose: 75 mg Furosemide (Lasix) 40 mg IVP DAILY [facility] Last Admin: 02/21/17 09:55 Dose: 40 mg Heparin Sodium (Porcine) (Heparin) 5,000 units SC Q12 DIVYA PRN Reason: Protocol Last Admin: 02/21/17 09:56 Dose: 5,000 units Hydralazine HCl (Apresoline) 10 mg IVP Q6 PRN PRN Reason: Systolic Blood Pressure Last Admin: 02/20/17 06:26 Dose: 10 mg Insulin Human Lispro (Humalog Low) 0 units SC ACHS [facility] PRN Reason: Protocol Last Admin: 02/21/17 12:11 Dose: 3 units Levothyroxine Sodium (Synthroid) 75 mcg PO 0600 [facility] Last Admin: 02/21/17 05:16 Dose: 75 mcg Metoprolol Tartrate (Lopressor) 50 mg PO BID [facility] Last Admin: 02/21/17 09:59 Dose: 50 mg - Labs Labs: 02/21/17 07:35 02/21/17 07:35 PT 11.4 SECONDS (9.4-12.5) 02/18/17 22:28 INR 1.04 (0.93-1.08) 02/18/17 22:28 APTT 28.0 Seconds (25.1-36.5) 02/18/17 22:28 Attending/Attestation - Attestation I have personally seen and examined this patient.: Yes I have fully participated in the care of the patient.: Yes I have reviewed all pertinent clinical information, including history, physical exam and plan: Yes Notes (Text): 02/21/17 13:01 Patient was seen and examined with medical aide. Agreed with resident assessment and plan. 81 yo M with PMH of HTN, COPD on O2, HLD, DM, CHF, , NSTEMI, and prostate CA was admitted with change of mental status, HTN urgency, CHF exacerbation, .Mental status is back to normal,Patient is on room air.There is no sign of over CHF.He is lying down flat.We will change lasix to PO.Patient renal functions are stable. Blood pressure is better controlled today. Cardiology is planning for cardiac cath on Wednesday, Management plan was discussed in detail with patient Education was provided.
--- NOTE | 2017-02-21 15:44 | PN ---
DATE: 02/21/2017 LOCATION: The patient in room 276, bed 1. REASON FOR CONSULTATION AND FOLLOWUP: Shortness of breath, run of atrial flutter. SUBJECTIVE: The patient denies any chest pain. His breathing is better. Denies any palpitations, but the monitor showed brief episode of atrial flutter with rapid rate, but the patient was asymptomatic. PHYSICAL EXAMINATION: VITAL SIGNS: Blood pressure 120/50, respirations 20, pulse 78, and temperature 97.8. HEENT: Head is normocephalic. Eyes: Pupils normal. Conjunctivae normal. Nose and throat, normal. NECK: JVP low. Carotids are equal. Thorax: AP diameter normal. LUNGS: No significant rales. CARDIOVASCULAR: S1 and S2. ABDOMEN: Soft and nontender. No organomegaly. Bowel sounds normal. EXTREMITIES: No clubbing, no cyanosis. LABORATORY DATA: WBC 6.0, hemoglobin 12.1, hematocrit 35.8, and platelets 349. Sodium 131, potassium 4.4. BUN 26, creatinine 1.5. DIAGNOSES: 1. Shortness of breath. 2. Possible acute diastolic congestive heart failure. 3. Diabetes mellitus. 4. Hypertension. 5. Left ventricular hypertrophy. 6. Short run of atrial flutter, converted to sinus spontaneously. PLAN: We will hold amlodipine and we will add Cardizem 30 mg t.i.d. because at times patient's heart rate is between 50 and 60 and the patient also getting Lopressor 50 mg b.i.d., Plavix 75 mg daily, levothyroxine 75 mcg p.o. daily, Lipitor 20 mg daily, furosemide 40 IV daily, Hygroton 50 mg p.o. daily, aspirin 81 mg daily. This progress note has been dictated on behalf of Dr. Sanabria, who I am covering. He will see the patient. Karin France MD
[2017-02-22] MEDS: Levothyroxine 75 MCG TAB PO SCH (05:01)
[2017-02-22 07:17] LABS: HEMATOCRIT 37.1 % (42.0-52.0); MEAN CELL VOLUME 86.7 fl (80.0-105.0); MEAN CORPUSCULAR HEMOGLOBIN 29.4 pg (25.0-35.0); MEAN PLATELET VOLUME 9.3 fl (7.0-11.0); RED CELL DISTRIBUTION WIDTH 13.8 % (11.5-14.5); WHITE BLOOD COUNT 5.2 10^3/ul (4.5-11.0)
[2017-02-22] MEDS ORDERED: Lidocaine 2% Inj (20ml) ONE (07:25)
[2017-02-22] MEDS ORDERED: Midazolam 2 MG/2 ML VIAL ONE ×3 (07:25→09:35)
[2017-02-22] MEDS ORDERED: Iodixanol 320 MG/ML 200 ML BOTTLE IV ONE (07:26)
[2017-02-22 07:32] LABS: ALB/GLOB RATIO 1.5 (1.1-1.8); BILIRUBIN,TOTAL 0.7 mg/dL (0.2-1.3); CALCIUM 9.8 mg/dL (8.4-10.5); POTASSIUM 4.3 mmol/L (3.6-5.0); TOTAL PROTEIN 7.1 g/dL (5.8-8.3)
[2017-02-22] MEDS ORDERED: Iohexol 350mgl/ml 50 ML ONE (09:35)
[2017-02-22] MEDS: Insulin Lispro (humaLOG) LOW Coverage SC SCH ×4 (09:50→22:30)
[2017-02-22] MEDS ORDERED: Sodium Chloride 0.9% 1,000 ML IV SCH (10:30)
--- NOTE | 2017-02-22 13:01 | CP.PCM.HP ---
History of Present Illness - History of Present Illness History of Present Illness: Medicine Progress Note: Pt seen and examined at bedside. Pt denies any acute overnight events. Pt returned from cardiac catherization. Pt denies CP, SOB, cough, nausea, vomiting , diarrhea, constipation, fatigue, PERKINS, swelling, or dizziness. Past Patient History - Past Social History Smoking Status: Former Smoker - CARDIAC Hx Cardiac Disorders: Yes Hx Congestive Heart Failure: Yes Hx Hypercholesterolemia: Yes Hx Hypertension: Yes Hx Peripheral Vascular Disease: Yes - PULMONARY Hx Chronic Obstructive Pulmonary Disease (COPD): Yes - ENDOCRINE/METABOLIC Hx Endocrine Disorders: Yes Hx Diabetes Mellitus Type 2: Yes Hx Hypothyroidism: Yes - MUSCULOSKELETAL/RHEUMATOLOGICAL Hx Musculoskeletal Disorders: Yes Hx Falls: No - GENITOURINARY/GYNECOLOGICAL Hx Prostate Problems: Yes (Prostate CA) - PSYCHIATRIC Hx Substance Use: No Meds Allergies/Adverse Reactions: Allergies Allergy/AdvReac Type Severity Reaction Status Date / Time No Known Allergies Allergy Unverified 02/18/17 22:13 Results - Vital Signs Recent Vital Signs: Last Vital Signs Temp 98.3 F 02/22/17 12:00 Pulse 108 H 02/22/17 12:00 Resp 19 02/22/17 12:00 BP 172/72 H 02/22/17 12:00 Pulse Ox 99 02/22/17 06:00 - Labs Result Diagrams: 02/22/17 07:03 02/22/17 07:03 Labs: Laboratory Results - last 24 hr 02/21/17 02/21/17 02/21/17 07:23 11:39 16:45 WBC RBC Hgb Hct MCV MCH MCHC RDW Plt Count MPV Sodium Potassium Chloride Carbon Dioxide Anion Gap BUN Creatinine Est GFR ( Amer) Est GFR (Non-Af Amer) POC Glucose (mg/dL) 167 H 291 H 280 H Random Glucose Calcium Total Bilirubin AST ALT Alkaline Phosphatase Total Protein Albumin Globulin Albumin/Globulin Ratio 02/21/17 02/22/17 02/22/17 21:13 07:03 07:03 WBC 5.2 RBC 4.28 Hgb 12.6 L Hct 37.1 L MCV 86.7 MCH 29.4 MCHC 34.0 RDW 13.8 Plt Count 363 MPV 9.3 Sodium 130 L Potassium 4.3 Chloride 91 L Carbon Dioxide 30 Anion Gap 13 BUN 35 H Creatinine 1.7 H Est GFR ( Amer) 47 Est GFR (Non-Af Amer) 39 POC Glucose (mg/dL) 194 H Random Glucose 165 H Calcium 9.8 Total Bilirubin 0.7 AST 27 ALT 43 Alkaline Phosphatase 70 Total Protein 7.1 Albumin 4.3 Globulin 2.8 Albumin/Globulin Ratio 1.5 02/22/17 11:33 WBC RBC Hgb Hct MCV MCH MCHC RDW Plt Count MPV Sodium Potassium Chloride Carbon Dioxide Anion Gap BUN Creatinine Est GFR ( Amer) Est GFR (Non-Af Amer) POC Glucose (mg/dL) 191 H Random Glucose Calcium Total Bilirubin AST ALT Alkaline Phosphatase Total Protein Albumin Globulin Albumin/Globulin Ratio
--- NOTE | 2017-02-22 13:06 | CP.PCM.PN ---
<LIZETTE FLOWERS - Last Filed: 02/22/17 13:02> Subjective - Date & Time of Evaluation Date of Evaluation: 02/22/17 Time of Evaluation: 13:02 - Subjective Subjective: Medicine Progress Note: Pt seen and examined at bedside. Pt denies any acute overnight events. Pt returned from cardiac catherization. Pt lying flat, comfortable in bed. Pt denies CP, SOB, cough, nausea, vomiting, diarrhea, constipation, fatigue, PERKINS, swelling, or dizziness. Objective - Vital Signs/Intake and Output Vital Signs (last 24 hours): Temp Pulse Resp BP Pulse Ox 98.3 F 108 H 19 172/72 H 99 02/22/17 12:00 02/22/17 12:00 02/22/17 12:00 02/22/17 12:00 02/22/17 06:00 Intake and Output: 02/22/17 02/22/17 06:59 18:59 Intake Total 300 Balance 300 - Medications Medications: Current Medications Acetaminophen (Tylenol 325mg Tab) 650 mg PO Q6H PRN PRN Reason: Pain, moderate (4-7) Last Admin: 02/21/17 22:03 Dose: 650 mg Albuterol/Ipratropium (Duoneb 3 Mg/0.5 Mg (3 Ml) Ud) 3 ml IH Q2H PRN PRN Reason: Shortness of Breath Last Admin: 02/20/17 19:33 Dose: 3 ml Amlodipine Besylate (Norvasc) 10 mg PO DAILY [facility] Last Admin: 02/21/17 10:00 Dose: 10 mg Aspirin (Aspirin Chewable) 81 mg PO DAILY [facility] Last Admin: 02/22/17 11:02 Dose: Not Given Aspirin (Ecotrin) 81 mg PO DAILY [facility] Atorvastatin Calcium (Lipitor) 20 mg PO DIN [facility] Last Admin: 02/21/17 17:53 Dose: 20 mg Atorvastatin Calcium (Lipitor) 40 mg PO DIN [facility] Chlorthalidone (Hygroton) 50 mg PO DAILY [facility] Last Admin: 02/22/17 11:39 Dose: 50 mg Clonidine HCl (Catapres) 0.1 mg PO TID [facility] Last Admin: 02/22/17 11:02 Dose: Not Given Clopidogrel Bisulfate (Plavix) 75 mg PO DAILY [facility] Last Admin: 02/22/17 11:03 Dose: Not Given Diltiazem HCl (Cardizem) 30 mg PO TID [facility] Last Admin: 02/22/17 11:02 Dose: Not Given Hydralazine HCl (Apresoline) 10 mg IVP Q6 PRN PRN Reason: Systolic Blood Pressure Last Admin: 02/20/17 06:26 Dose: 10 mg Sodium Chloride (Sodium Chloride 0.9%) 1,000 mls @ 100 mls/hr IV .Q10H [facility] Stop: 02/22/17 17:00 Last Admin: 02/22/17 11:04 Dose: 100 mls/hr Insulin Human Lispro (Humalog Low) 0 units SC ACHS [facility] PRN Reason: Protocol Last Admin: 02/22/17 12:22 Dose: 1 units Levothyroxine Sodium (Synthroid) 75 mcg PO 0600 [facility] Last Admin: 02/22/17 05:01 Dose: 75 mcg Metoprolol Tartrate (Lopressor) 50 mg PO BID [facility] Last Admin: 02/22/17 11:39 Dose: 50 mg - Labs Labs: 02/22/17 07:03 02/22/17 07:03 PT 11.4 SECONDS (9.4-12.5) 02/18/17 22:28 INR 1.04 (0.93-1.08) 02/18/17 22:28 APTT 28.0 Seconds (25.1-36.5) 02/18/17 22:28 - Constitutional Appears: No Acute Distress - Head Exam Head Exam: ATRAUMATIC, NORMOCEPHALIC - Eye Exam Eye Exam: EOMI, PERRL - ENT Exam ENT Exam: Mucous Membranes Moist - Neck Exam Neck Exam: Full ROM. absent: Lymphadenopathy, Tenderness, Thyromegaly - Respiratory Exam Respiratory Exam: Clear to Ausculation Bilateral. absent: Rales, Rhonchi, Wheezes - Cardiovascular Exam Cardiovascular Exam: RRR, +S1, +S2. absent: Diastolic murmur, Gallop, Rubs, Murmur - GI/Abdominal Exam GI & Abdominal Exam: Soft. absent: Guarding, Tenderness, Mass, Rebound Additional comments: Incision site on left groin clean, dry, and intact - Extremities Exam Extremities Exam: Normal Inspection - Neurological Exam Neurological Exam: Awake, Oriented x3 - Psychiatric Exam Psychiatric exam: Normal Affect, Normal Mood - Skin Skin Exam: Dry, Intact, Normal Color, Warm Assessment and Plan - Assessment and Plan (Free Text) Assessment: 81 yo M with PMH of HTN, COPD on O2, HLD, DM, CHF, osteomyelitis, NSTEMI, and prostate CA will be admitted for treatment and evaluation for HTN urgency, COPD exacerbation, and CHF exacerbation. Cardiac cath POD#0. Plan: 1. HTN Urgency - Stable, cont to monitor - Cont Hydralazine prn - Cont Home meds: Clonidine - Per cardio, hold norvasc, start cardizem - Hold Chlorthalidone due to possible constrast induced nephropathy 2/2 cardiac cath Cr 1.7 today 2. COPD Exacerbation - Stable - Duoneb q2 prn, has not required for 2 days - Pt refusing BIPAP 3. CHF - BNP 4830 - Echo showed LVEF 61% - Troponin 0.04---.03---.03 - Cont Lopressor - Diuretics held due to possible ZAINA - Cardiology consulted - due to significant cardiac hx F/u cardiac cath results 4. Hyperkalemia - resolved - Cont to monitor and replete as needed 5. DM - ISS - Accuchecks ACHS 6. Transaminitis - Improved - Cont to monitor 7. Hx of Hypothyroidism - Cont home Levothyroxine 8. H/O NSTEMI, HLD - Cont Plavix, Lipitor, ASA 9. Hx of L hip pain - Tylenol PRN GI/DVT PPx - Heparin - Protonix Pt and plan was seen, reviewed and discussed in detail with Dr. Navarro. Mustapha Flowers, PGY1 <lAexis Navarro - Last Filed: 02/22/17 14:41> Objective - Vital Signs/Intake and Output Vital Signs (last 24 hours): Temp Pulse Resp BP Pulse Ox 98.4 F 114 H 18 106/54 L 99 02/22/17 13:35 02/22/17 13:35 02/22/17 13:35 02/22/17 13:35 02/22/17 06:00 Intake and Output: 02/22/17 02/22/17 06:59 18:59 Intake Total 300 Balance 300 - Medications Medications: Current Medications Acetaminophen (Tylenol 325mg Tab) 650 mg PO Q6H PRN PRN Reason: Pain, moderate (4-7) Last Admin: 02/21/17 22:03 Dose: 650 mg Albuterol/Ipratropium (Duoneb 3 Mg/0.5 Mg (3 Ml) Ud) 3 ml IH Q2H PRN PRN Reason: Shortness of Breath Last Admin: 02/20/17 19:33 Dose: 3 ml Amlodipine Besylate (Norvasc) 10 mg PO DAILY [facility] Last Admin: 02/21/17 10:00 Dose: 10 mg Aspirin (Aspirin Chewable) 81 mg PO DAILY [facility] Last Admin: 02/22/17 11:02 Dose: Not Given Aspirin (Ecotrin) 81 mg PO DAILY [facility] Atorvastatin Calcium (Lipitor) 40 mg PO DIN [facility] Chlorthalidone (Hygroton) 50 mg PO DAILY [facility] Last Admin: 02/22/17 11:39 Dose: 50 mg Clonidine HCl (Catapres) 0.1 mg PO TID [facility] Last Admin: 02/22/17 11:02 Dose: Not Given Clopidogrel Bisulfate (Plavix) 75 mg PO DAILY [facility] Last Admin: 02/22/17 11:03 Dose: Not Given Diltiazem HCl (Cardizem) 30 mg PO TID [facility] Last Admin: 02/22/17 11:02 Dose: Not Given Hydralazine HCl (Apresoline) 10 mg IVP Q6 PRN PRN Reason: Systolic Blood Pressure Last Admin: 02/20/17 06:26 Dose: 10 mg Sodium Chloride (Sodium Chloride 0.9%) 1,000 mls @ 100 mls/hr IV .Q10H [facility] Stop: 02/22/17 17:00 Last Admin: 02/22/17 11:04 Dose: 100 mls/hr Insulin Human Lispro (Humalog Low) 0 units SC ACHS [facility] PRN Reason: Protocol Last Admin: 02/22/17 12:22 Dose: 1 units Levothyroxine Sodium (Synthroid) 75 mcg PO 0600 [facility] Last Admin: 02/22/17 05:01 Dose: 75 mcg Metoprolol Tartrate (Lopressor) 50 mg PO BID [facility] Last Admin: 02/22/17 11:39 Dose: 50 mg - Labs Labs: 02/22/17 07:03 02/22/17 07:03 PT 11.4 SECONDS (9.4-12.5) 02/18/17 22:28 INR 1.04 (0.93-1.08) 02/18/17 22:28 APTT 28.0 Seconds (25.1-36.5) 02/18/17 22:28 Attending/Attestation - Attestation I have personally seen and examined this patient.: Yes I have fully participated in the care of the patient.: Yes I have reviewed all pertinent clinical information, including history, physical exam and plan: Yes Notes (Text): 02/22/17 13:56 81 year old male with past medical history of hypertension, diabetes, CAD and COPD who presented with altered mental status, CHF exacerbation, and hypertensive urgency which have resolved. He was seen by cardiology and underwent cardiac cath today with stents placement. Continue with aspirin, plavix, statin and lopressor. Creatinine is 1.7 today. Will hold lasix and chlorthalidone for today and continue with iv fluids post cardiac cath to prevent contrast induced nephropathy. Will follow up with cardiology recommendations. Alexis Navarro MD Hospitalist.
--- NOTE | 2017-02-22 13:43 | CARDCATH ---
PROCEDURE DATE: 02/22/2017 HISTORY: The patient is an 81-year-old male who presented with shortness of breath, was found to have borderline elevated troponins. He had a high pretest probability for coronary artery disease. He was brought to the pharmaceutical laboratory technician. PROCEDURE: Left heart catheterization with coronary angiography and left ventriculogram followed by PTCA and stent of 2 lesions in the RCA. The right femoral artery was cannulated with a 6-[place] sheath. There were no complications. The findings on catheterization revealed a left ventricle that revealed an ejection fraction of 60%. His coronary anatomy revealed a right dominant circulation. The RCA revealed diffuse intimal irregularities with 2 critical lesions in the proximal portion with 2 tandem lesions of 80% and 70%. His left main artery was unremarkable. The LAD revealed diffuse atherosclerosis with a 70% to 80% stenosis in the mid to distal portion. Diagonal vessels revealed diffuse atherosclerosis. The circumflex artery and obtuse marginal branches revealed intimal irregularities without critical lesions. The patient was started on intravenous Angiomax on the fluoroscopic guide, a guiding catheter was placed in the ostium of left main artery. A 0.014 ATW wire was used to cross the 2 critical lesions in the RCA. The initial PCI was performed with a 2.0 x 9 mm balloon. This was followed by placing 2 drug-eluting stents in the proximal portion of the RCA. Repeat coronary angiography after stent deployment revealed an excellent result with no residual stenosis and ANGELIQUE III flow. Angio-Seal was used to close the femoral artery site. The patient tolerated the procedure well. In summary, the procedure was successful for PTCA and stent of 2 lesions in the proximal RCA with drug-eluting stents. Cardiac catheterization reveals two-vessel CAD with critical lesions in the proximal RCA as well as a critical lesion in the mid LAD. LV function is normal. Given these findings, the patient will need to remain on aspirin indefinitely and Plavix for at least a year. We will bring him back in 1 week for PTCA and stent of the LAD. The patient will need to remain on Plavix for at least a year and undergo strict cardiac risk-reduction program. Micheal Sanabria MD
--- NOTE | 2017-02-22 16:34 | CARD ---
APPROVED REPORT EKG Measurement Heart [id number] <Conclusion> Probably sinus tacycardia with marked 1st degreee AVB PRWP STTW changes c/w ischemia
[2017-02-23 05:54] VITALS: RESP 19; O2SAT 97
[2017-02-23] MEDS: Levothyroxine 75 MCG TAB PO SCH (06:12)
[2017-02-23 07:11] LABS: BASO # 0.02 K/mm3 (0.0-2.0); BASO % 0.4 % (0.0-3.0); EOS # 0.1 (0.0-0.7); EOS % 2.5 % (1.5-5.0); GRAN # 3.47 (1.4-6.5); GRAN % 61.1 % (50.0-68.0); LYMPH # 1.2 (1.2-3.4); LYMPH % 21.7 % (22.0-35.0); MEAN CELL VOLUME 87.3 fl (80.0-105.0); MEAN CORPUSCULAR HEMOGLOBIN 29.5 pg (25.0-35.0); MEAN CORPUSCULAR HGB CONC 33.8 g/dl (31.0-37.0); MEAN PLATELET VOLUME 9.4 fl (7.0-11.0); MONO # 0.8 (0.1-0.6); MONO % 14.3 % (1.0-6.0); RED CELL DISTRIBUTION WIDTH 13.9 % (11.5-14.5); WHITE BLOOD COUNT 5.7 10^3/ul (4.5-11.0)
[2017-02-23] MEDS: Insulin Lispro (humaLOG) LOW Coverage SC SCH ×2 (07:58→12:23)
[2017-02-23 08:07] LABS: ALB/GLOB RATIO 1.7 (1.1-1.8); BILIRUBIN,TOTAL 0.7 mg/dL (0.2-1.3); CALCIUM 10.1 mg/dL (8.4-10.5); POTASSIUM 4.5 mmol/L (3.6-5.0); TOTAL PROTEIN 6.5 g/dL (5.8-8.3)
[2017-02-23 11:36] VITALS: TEMP 98
[2017-02-23] MEDS ORDERED: Insulin Lispro 1 UNITS/0.01 ML SC ONE (13:23)
--- NOTE | 2017-02-23 13:31 | CARD ---
APPROVED REPORT EKG Measurement Heart [id number] <Conclusion> Sinus rhythm with marked 1st degree AV block T wave abnormality, consider lateral ischemia PRWP V 1 - 4 IVCD
--- NOTE | 2017-02-23 13:37 | PN ---
CARDIOLOGY FOLLOWUP DATE OF FOLLOWUP: 02/23/2017 SUBJECTIVE: The patient is ambulating without symptoms. OBJECTIVE: VITAL SIGNS: Blood pressure 119/68, heart rate in the 90s. NECK: Negative JVD. LUNGS: Without rales. HEART: With S1, S2. EXTREMITIES: Without edema. LABORATORY DATA: Reveal hemoglobin of 12.5. Chemistries, creatinine is 1.8. Glucose is 153. IMPRESSION: 1. Stable post percutaneous transluminal coronary angioplasty and stent. 2. Coronary artery disease. 3. Diabetes mellitus. 4. Hypercholesterolemia. PLAN: Given these findings, the patient can be discharged from a cardiac perspective. The patient will be brought back next week for PTCA and stent with stage PTCA. Instructions have been given to the patient in detail. Micheal Sanabria MD
[2017-02-23 14:41] VITALS: BP 159/66; PULSE 62
--- NOTE | 2017-02-23 16:35 | CP.PCM.DIS ---
<LIZETTE FLOWERS - Last Filed: 02/23/17 16:18> Provider - Provider Date of Admission: 02/18/17 23:31 Attending physician: Alexis Navarro MD Consults: Yazmin: Daniele Time Spent in preparation of Discharge (in minutes): 40 Hospital Course - Lab Results Lab Results: Most Recent Lab Values WBC 5.7 10^3/ul (4.5-11.0) 02/23/17 06:57 RBC 4.24 10^6/uL (3.5-6.1) 02/23/17 06:57 Hgb 12.5 g/dL (14.0-18.0) L 02/23/17 06:57 Hct 37.0 % (42.0-52.0) L 02/23/17 06:57 MCV 87.3 fl (80.0-105.0) 02/23/17 06:57 MCH 29.5 pg (25.0-35.0) 02/23/17 06:57 MCHC 33.8 g/dl (31.0-37.0) 02/23/17 06:57 RDW 13.9 % (11.5-14.5) 02/23/17 06:57 Plt Count 335 10^3/uL (120.0-450.0) 02/23/17 06:57 MPV 9.4 fl (7.0-11.0) 02/23/17 06:57 Gran % 61.1 % (50.0-68.0) 02/23/17 06:57 Lymph % (Auto) 21.7 % (22.0-35.0) L 02/23/17 06:57 [place] % (Auto) 14.3 % (1.0-6.0) H 02/23/17 06:57 Eos % (Auto) 2.5 % (1.5-5.0) 02/23/17 06:57 Baso % (Auto) 0.4 % (0.0-3.0) 02/23/17 06:57 Gran # 3.47 (1.4-6.5) 02/23/17 06:57 Lymph # 1.2 (1.2-3.4) 02/23/17 06:57 [place] # 0.8 (0.1-0.6) H 02/23/17 06:57 Eos # 0.1 (0.0-0.7) 02/23/17 06:57 Baso # 0.02 K/mm3 (0.0-2.0) 02/23/17 06:57 PT 11.4 SECONDS (9.4-12.5) 02/18/17 22:28 INR 1.04 (0.93-1.08) 02/18/17 22:28 APTT 28.0 Seconds (25.1-36.5) 02/18/17 22:28 pCO2 47 mm/Hg (35-45) H 02/19/17 04:53 pO2 160.0 mm/Hg (80-100) H 02/19/17 04:53 HCO3 27.8 mmol/L (21-28) 02/19/17 04:53 ABG pH 7.38 (7.35-7.45) 02/19/17 04:53 ABG Total CO2 29.2 mmol.L (22-28) H 02/19/17 04:53 ABG O2 Saturation 99.1 % (95-98) H 02/19/17 04:53 ABG O2 Content 15.0 ML/dl (15-23) 02/19/17 04:53 ABG Base Excess 2.1 mmol/L (-2.0-3.0) 02/19/17 04:53 ABG Hemoglobin 10.9 g/dL (11.7-17.4) L 02/19/17 04:53 ABG Carboxyhemoglobin 1.7 % (0.5-1.5) H 02/19/17 04:53 POC ABG HHb (Measured) 0.9 % (0-5) 02/19/17 04:53 ABG Methemoglobin 1.4 % (0.0-3.0) 02/19/17 04:53 ABG O2 Capacity 15.1 mL/dl (16-24) L 02/19/17 04:53 VBG pH 7.28 (7.32-7.43) L 02/19/17 02:35 VBG pCO2 67.0 (40-60) H* 02/19/17 02:35 VBG HCO3 31.5 mmol/l (21-28) H 02/19/17 02:35 VBG Total CO2 33.6 mmol.L (22-28) H 02/19/17 02:35 VBG O2 Sat (Calc) 51.7 % (40-65) 02/19/17 02:35 VBG Base Excess 2.8 mmol/L (0.0-2.0) H 02/19/17 02:35 VBG Potassium 4.6 mmol/L (3.6-5.2) 02/19/17 02:35 Hgb O2 Saturation 96.0 % (95.0-98.0) 02/19/17 04:53 Sodium 134.0 mmol/L (132-148) 02/19/17 02:35 Chloride 100.0 mmol/L (98-107) 02/19/17 02:35 Glucose 288 mg/dl (75-110) H 02/19/17 02:35 Lactate 1.8 mmol/L (0.7-2.1) 02/19/17 02:35 FiO2 40.0 % 02/19/17 04:53 Sodium 135 mmol/L (132-148) 02/23/17 07:00 Potassium 4.5 mmol/L (3.6-5.0) 02/23/17 07:00 Chloride 95 mmol/L (95-110) 02/23/17 07:00 Carbon Dioxide 29 mmol/L (21-33) 02/23/17 07:00 Anion Gap 16 (10-20) 02/23/17 07:00 BUN 38 mg/dL (7-21) H 02/23/17 07:00 Creatinine 1.8 mg/dL (0.8-1.5) H 02/23/17 07:00 Est GFR ( Amer) 44 02/23/17 07:00 Est GFR (Non-Af Amer) 36 02/23/17 07:00 POC Glucose (mg/dL) 220 mg/dL (65-110) H 02/23/17 14:18 Random Glucose 153 mg/dL (70-110) H 02/23/17 07:00 Hemoglobin A1c 7.7 % (4.2-6.5) H 02/18/17 22:28 Calcium 10.1 mg/dL (8.4-10.5) 02/23/17 07:00 Phosphorus 3.5 mg/dL (2.5-4.5) 02/20/17 07:59 Magnesium 1.9 mg/dL (1.7-2.2) 02/20/17 07:59 Total Bilirubin 0.7 mg/dL (0.2-1.3) 02/23/17 07:00 AST 20 U/L (17-59) 02/23/17 07:00 ALT 51 U/L (7-56) 02/23/17 07:00 Alkaline Phosphatase 65 U/L (38-126) 02/23/17 07:00 Lactate Dehydrogenase 623 U/L (333-699) 02/19/17 12:30 Total Creatine Kinase 140 U/L (35-230) 02/19/17 12:30 Troponin I 0.03 ng/mL D 02/19/17 12:30 NT-Pro-B Natriuret Pep 4830 pg/mL (0-450) H 02/18/17 22:28 Total Protein 6.5 g/dL (5.8-8.3) 02/23/17 07:00 Albumin 4.1 g/dL (3.0-4.8) 02/23/17 07:00 Globulin 2.4 gm/dL 02/23/17 07:00 Albumin/Globulin Ratio 1.7 (1.1-1.8) 02/23/17 07:00 Triglycerides 84 mg/dL (35-160) 02/18/17 22:28 Cholesterol 167 mg/dL (130-200) 02/18/17 22:28 LDL Cholesterol Direct 92 mg/dL (0-129) 02/18/17 22:28 HDL Cholesterol 67 mg/dL (29-60) H 02/18/17 22:28 Free T4 1.28 ng/dL (0.78-2.19) 02/20/17 07:59 TSH 3rd Generation 4.29 mIU/mL (0.46-4.68) 02/20/17 07:59 Venous Blood Potassium 4.6 mmol/L (3.6-5.2) 02/19/17 02:35 Urine Color Yellow (YELLOW) 02/18/17 23:03 Urine Appearance Clear (CLEAR) 02/18/17 23:03 Urine pH 6.0 (4.7-8.0) 02/18/17 23:03 Ur Specific [place] >= 1.030 (1.005-1.035) 02/18/17 23:03 Urine Protein 100 mg/dL (<30 mg/dL) H 02/18/17 23:03 Urine Glucose (UA) >=1000 mg/dL (NEGATIVE) 02/18/17 23:03 Urine Ketones Negative mg/dL (NEGATIVE) 02/18/17 23:03 Urine Blood Trace-intact (NEGATIVE) H 02/18/17 23:03 Urine Nitrate Negative (NEGATIVE) 02/18/17 23:03 Urine Bilirubin Negative (NEGATIVE) 02/18/17 23:03 Urine Urobilinogen 0.2 E.U./dL (<1 E.U./dL) 02/18/17 23:03 Ur Leukocyte Esterase Negative [place]/uL (NEGATIVE) 02/18/17 23:03 Urine RBC 1 - 3 /hpf (0-2) 02/18/17 23:03 Urine WBC 0 - 2 /hpf (0-6) 02/18/17 23:03 Ur Epithelial Cells 0 - 2 /hpf (0-5) 02/18/17 23:03 Amorphous Sediment Few 02/18/17 23:03 Urine Bacteria Mod (NEG) 02/18/17 23:03 Salicylates < 1 mg/dL (2.0-20.0) L 02/18/17 22:41 Urine Opiates Screen Negative (NEGATIVE) 02/18/17 23:03 Urine Methadone Screen Negative (NEGATIVE) 02/18/17 23:03 Acetaminophen < 10.0 ug/ml (10.0-20.0) L 02/18/17 22:41 Ur Barbiturates Screen Negative (NEGATIVE) 02/18/17 23:03 Ur Phencyclidine Scrn Negative (NEGATIVE) 02/18/17 23:03 Ur Amphetamines Screen Negative (NEGATIVE) 02/18/17 23:03 U Benzodiazepines Scrn Negative (NEGATIVE) 02/18/17 23:03 U Oth Cocaine Metabols Negative (NEGATIVE) 02/18/17 23:03 U Cannabinoids Screen Negative (NEGATIVE) 02/18/17 23:03 Alcohol, Quantitative < 10 mg/dL (0-10) 02/18/17 22:41 Blood Type O POSITIVE 02/18/17 23:02 Blood Type Confirm O POSITIVE 02/18/17 23:30 Antibody Screen Negative 02/18/17 23:02 BBK History Checked No verified bt 02/18/17 23:02 - Hospital Course Hospital Course: Pt is an 81 yo male with PMH of HTN, COPD on O2, HLD, DM, CHF, osteomyelitis, NSTEMI, and prostatic CA brought to ED via EMS for SOB and possible syncope. Pt stated that he was at home watching TV when he became short of breath. He called 911, on response EMS noted that he collapsed into their arm's on the arrival. EMS transferred pt to [facility]. In the ED, pt was noted to be non-verbal, altered, with right gaze deviation, and not moving any extremities. Code stroke was called on arrival. CT scan was negative. However, due to concern of seizure Ativan was given. At this point, pt was moving extremities and had slurred speech. Pt was not a candidate for TPA due questionable seizure and no focal deficits. There was a concern for hypertensive encephalopathy with BP in the 200 's and so the patient was started on cardene drip. At time of interview, patient was able to answer questions appropriately. Pt did not recall being transferred to and arriving to the ED. But does remember calling 911 and being SOB. In the ED, labs and imaging were obtained. ABG showed respiratory acidosis , BNP 4830, unequivocal troponin, and CXR was negative. Pt was admitted for treatment and evaluation for HTN urgency, COPD exacerbation, and CHF exacerbation. Pt was placed on BIPAP and scheduled/PRN duoneb. Pt COPD stablized with these treatments. Patient was placed on home hypertensive medications and prn hydralazine. Pt BP stabilized with these medications. Cardiology was consulted due to patient's extensive cardiac history and unequivocal troponin finding. 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 2 stents were placed in the RCA. Cardiology saw patient today and recommended that patient could be discharged home. Pt is to remain on ASA, plavix, lipitor, and could continue home medications. Chlorthalidone will be held due to risk of contrast induced nephropathy. Per cardiology, patient will return in 1 week for stent placement in the LAD. Pt examined at bedside, denied any acute overnight events. Pt complained of some chronic hip pain, otherwise denied CP, SOB, nausea , vomiting, diarrhea, PERKINS, fatigue, dizziness, or pain at catherization site on left groin. Pt discharged home and advised to return for cardiac catherization as scheduled, follow up with PMD and take his home medications as prescribed. Discharge Exam - Head Exam Head Exam: ATRAUMATIC, NORMOCEPHALIC - Eye Exam Eye Exam: EOMI, PERRL - ENT Exam ENT Exam: Mucous Membranes Moist - Neck Exam Neck exam: Full Rom - Respiratory Exam Respiratory Exam: Clear to PA & Lateral. absent: Rales, Rhonchi, Wheezes - Cardiovascular Exam Cardiovascular Exam: RRR, +S1, +S2. absent: Diastolic murmur, Gallop, Rubs, Systolic Murmur - GI/Abdominal Exam GI & Abdominal Exam: Soft. absent: Distended, Guarding, Rebound, Rigid, Tenderness - Extremities Exam Additional comments: Incision site for catherization on Right groin clean dry and intact - Neurological Exam Neurological exam: Alert, Oriented x3 - Psychiatric Exam Psychiatric exam: Normal Affect, Normal Mood - Skin Skin Exam: Dry, Intact, Normal Color, Warm Discharge Plan - Discharge Medications Prescriptions: Aspirin [Ecotrin] 81 mg PO DAILY #30 tabec Atorvastatin [Lipitor] 40 mg PO DIN #30 tab - Follow Up Plan Condition: FAIR Disposition: HOME/ ROUTINE Instructions: Heart Failure (DC), Coronary Artery Disease (DC), Heart Healthy Diet (DC), COPD (Chronic Obstructive Pulmonary Disease) (DC), Hypertensive Crisis (DC), Hypertension (DC), Fall Prevention (DC), BiPAP (GEN), Heart Catheterization (DC), Coronary Intravascular Stent Placement (DC) Additional Instructions: 1. Return as scheduled for cardiac catherization 2. Follow up with Dr. Sanabria, Cardiology outpatient 3. Follow up with PMD within 1 week 4. Take prescriptions as prescribed - New prescription for Lipitor 40 mg daily (instead of 20 mg home med) - Plavix and Aspirin should be continued until stated otherwise - Do not take Chlorthalidone until instructed otherwise - Resume all other home medications 5. Return to ED if symptoms worsen Referrals: Micheal Sanabria MD [Staff Provider] - <Alexis Navarro - Last Filed: 02/24/17 07:40> Provider - Provider Date of Admission: 02/18/17 23:31 Attending physician: Alexis Navarro MD Hospital Course - Lab Results Lab Results: Most Recent Lab Values WBC 5.7 10^3/ul (4.5-11.0) 02/23/17 06:57 RBC 4.24 10^6/uL (3.5-6.1) 02/23/17 06:57 Hgb 12.5 g/dL (14.0-18.0) L 02/23/17 06:57 Hct 37.0 % (42.0-52.0) L 02/23/17 06:57 MCV 87.3 fl (80.0-105.0) 02/23/17 06:57 MCH 29.5 pg (25.0-35.0) 02/23/17 06:57 MCHC 33.8 g/dl (31.0-37.0) 02/23/17 06:57 RDW 13.9 % (11.5-14.5) 02/23/17 06:57 Plt Count 335 10^3/uL (120.0-450.0) 02/23/17 06:57 MPV 9.4 fl (7.0-11.0) 02/23/17 06:57 Gran % 61.1 % (50.0-68.0) 02/23/17 06:57 Lymph % (Auto) 21.7 % (22.0-35.0) L 02/23/17 06:57 [place] % (Auto) 14.3 % (1.0-6.0) H 02/23/17 06:57 Eos % (Auto) 2.5 % (1.5-5.0) 02/23/17 06:57 Baso % (Auto) 0.4 % (0.0-3.0) 02/23/17 06:57 Gran # 3.47 (1.4-6.5) 02/23/17 06:57 Lymph # 1.2 (1.2-3.4) 02/23/17 06:57 [place]lin # 0.8 (0.1-0.6) H 02/23/17 06:57 Eos # 0.1 (0.0-0.7) 02/23/17 06:57 Baso # 0.02 K/mm3 (0.0-2.0) 02/23/17 06:57 PT 11.4 SECONDS (9.4-12.5) 02/18/17 22:28 INR 1.04 (0.93-1.08) 02/18/17 22:28 APTT 28.0 Seconds (25.1-36.5) 02/18/17 22:28 pCO2 47 mm/Hg (35-45) H 02/19/17 04:53 pO2 160.0 mm/Hg (80-100) H 02/19/17 04:53 HCO3 27.8 mmol/L (21-28) 02/19/17 04:53 ABG pH 7.38 (7.35-7.45) 02/19/17 04:53 ABG Total CO2 29.2 mmol.L (22-28) H 02/19/17 04:53 ABG O2 Saturation 99.1 % (95-98) H 02/19/17 04:53 ABG O2 Content 15.0 ML/dl (15-23) 02/19/17 04:53 ABG Base Excess 2.1 mmol/L (-2.0-3.0) 02/19/17 04:53 ABG Hemoglobin 10.9 g/dL (11.7-17.4) L 02/19/17 04:53 ABG Carboxyhemoglobin 1.7 % (0.5-1.5) H 02/19/17 04:53 POC ABG HHb (Measured) 0.9 % (0-5) 02/19/17 04:53 ABG Methemoglobin 1.4 % (0.0-3.0) 02/19/17 04:53 ABG O2 Capacity 15.1 mL/dl (16-24) L 02/19/17 04:53 VBG pH 7.28 (7.32-7.43) L 02/19/17 02:35 VBG pCO2 67.0 (40-60) H* 02/19/17 02:35 VBG HCO3 31.5 mmol/l (21-28) H 02/19/17 02:35 VBG Total CO2 33.6 mmol.L (22-28) H 02/19/17 02:35 VBG O2 Sat (Calc) 51.7 % (40-65) 02/19/17 02:35 VBG Base Excess 2.8 mmol/L (0.0-2.0) H 02/19/17 02:35 VBG Potassium 4.6 mmol/L (3.6-5.2) 02/19/17 02:35 Hgb O2 Saturation 96.0 % (95.0-98.0) 02/19/17 04:53 Sodium 134.0 mmol/L (132-148) 02/19/17 02:35 Chloride 100.0 mmol/L (98-107) 02/19/17 02:35 Glucose 288 mg/dl (75-110) H 02/19/17 02:35 Lactate 1.8 mmol/L (0.7-2.1) 02/19/17 02:35 FiO2 40.0 % 02/19/17 04:53 Sodium 135 mmol/L (132-148) 02/23/17 07:00 Potassium 4.5 mmol/L (3.6-5.0) 02/23/17 07:00 Chloride 95 mmol/L (95-110) 02/23/17 07:00 Carbon Dioxide 29 mmol/L (21-33) 02/23/17 07:00 Anion Gap 16 (10-20) 02/23/17 07:00 BUN 38 mg/dL (7-21) H 02/23/17 07:00 Creatinine 1.8 mg/dL (0.8-1.5) H 02/23/17 07:00 Est GFR ( Amer) 44 02/23/17 07:00 Est GFR (Non-Af Amer) 36 02/23/17 07:00 POC Glucose (mg/dL) 220 mg/dL (65-110) H 02/23/17 14:18 Random Glucose 153 mg/dL (70-110) H 02/23/17 07:00 Hemoglobin A1c 7.7 % (4.2-6.5) H 02/18/17 22:28 Calcium 10.1 mg/dL (8.4-10.5) 02/23/17 07:00 Phosphorus 3.5 mg/dL (2.5-4.5) 02/20/17 07:59 Magnesium 1.9 mg/dL (1.7-2.2) 02/20/17 07:59 Total Bilirubin 0.7 mg/dL (0.2-1.3) 02/23/17 07:00 AST 20 U/L (17-59) 02/23/17 07:00 ALT 51 U/L (7-56) 02/23/17 07:00 Alkaline Phosphatase 65 U/L (38-126) 02/23/17 07:00 Lactate Dehydrogenase 623 U/L (333-699) 02/19/17 12:30 Total Creatine Kinase 140 U/L (35-230) 02/19/17 12:30 Troponin I 0.03 ng/mL D 02/19/17 12:30 NT-Pro-B Natriuret Pep 4830 pg/mL (0-450) H 02/18/17 22:28 Total Protein 6.5 g/dL (5.8-8.3) 02/23/17 07:00 Albumin 4.1 g/dL (3.0-4.8) 02/23/17 07:00 Globulin 2.4 gm/dL 02/23/17 07:00 Albumin/Globulin Ratio 1.7 (1.1-1.8) 02/23/17 07:00 Triglycerides 84 mg/dL (35-160) 02/18/17 22:28 Cholesterol 167 mg/dL (130-200) 02/18/17 22:28 LDL Cholesterol Direct 92 mg/dL (0-129) 02/18/17 22:28 HDL Cholesterol 67 mg/dL (29-60) H 02/18/17 22:28 Free T4 1.28 ng/dL (0.78-2.19) 02/20/17 07:59 TSH 3rd Generation 4.29 mIU/mL (0.46-4.68) 02/20/17 07:59 Venous Blood Potassium 4.6 mmol/L (3.6-5.2) 02/19/17 02:35 Urine Color Yellow (YELLOW) 02/18/17 23:03 Urine Appearance Clear (CLEAR) 02/18/17 23:03 Urine pH 6.0 (4.7-8.0) 02/18/17 23:03 Ur Specific [place] >= 1.030 (1.005-1.035) 02/18/17 23:03 Urine Protein 100 mg/dL (<30 mg/dL) H 02/18/17 23:03 Urine Glucose (UA) >=1000 mg/dL (NEGATIVE) 02/18/17 23:03 Urine Ketones Negative mg/dL (NEGATIVE) 02/18/17 23:03 Urine Blood Trace-intact (NEGATIVE) H 02/18/17 23:03 Urine Nitrate Negative (NEGATIVE) 02/18/17 23:03 Urine Bilirubin Negative (NEGATIVE) 02/18/17 23:03 Urine Urobilinogen 0.2 E.U./dL (<1 E.U./dL) 02/18/17 23:03 Ur Leukocyte Esterase Negative [place]/uL (NEGATIVE) 02/18/17 23:03 Urine RBC 1 - 3 /hpf (0-2) 02/18/17 23:03 Urine WBC 0 - 2 /hpf (0-6) 02/18/17 23:03 Ur Epithelial Cells 0 - 2 /hpf (0-5) 02/18/17 23:03 Amorphous Sediment Few 02/18/17 23:03 Urine Bacteria Mod (NEG) 02/18/17 23:03 Salicylates < 1 mg/dL (2.0-20.0) L 02/18/17 22:41 Urine Opiates Screen Negative (NEGATIVE) 02/18/17 23:03 Urine Methadone Screen Negative (NEGATIVE) 02/18/17 23:03 Acetaminophen < 10.0 ug/ml (10.0-20.0) L 02/18/17 22:41 Ur Barbiturates Screen Negative (NEGATIVE) 02/18/17 23:03 Ur Phencyclidine Scrn Negative (NEGATIVE) 02/18/17 23:03 Ur Amphetamines Screen Negative (NEGATIVE) 02/18/17 23:03 U Benzodiazepines Scrn Negative (NEGATIVE) 02/18/17 23:03 U Oth Cocaine Metabols Negative (NEGATIVE) 02/18/17 23:03 U Cannabinoids Screen Negative (NEGATIVE) 02/18/17 23:03 Alcohol, Quantitative < 10 mg/dL (0-10) 02/18/17 22:41 Blood Type O POSITIVE 02/18/17 23:02 Blood Type Confirm O POSITIVE 02/18/17 23:30 Antibody Screen Negative 02/18/17 23:02 BBK History Checked No verified bt 02/18/17 23:02 Attending/Attestation - Attestation I have personally seen and examined this patient.: Yes I have fully participated in the care of the patient.: Yes I have reviewed all pertinent clinical information, including history, physical exam and plan: Yes Notes (Text): 02/23/17 81 year old male with past medical history of hypertension, diabetes, CAD and COPD who presented with altered mental status, CHF exacerbation, and hypertensive urgency which have resolved. He was seen by cardiology and underwent cardiac cath yesterday with 2 LILIANE stents placed. He is on aspirin, plavix, statin and lopressor. He had mild TEJAL, possibly contrast induced nephropathy. His chlorthalidone and lasix were held. He is cleared for discharge by cardiology to follow up with him next week. To repeat bmp with Dr. Sanabria. Follow up with pmd and cardiology. Continue with aspirin, plavix and statin. Chlorthalidone and lasix are on hold. Alexis Navarro MD Hospitalist.
== END 2017-02-23 15:50 | disposition home or self-care (01) | DRG 981 ==
LOC: ED 22:10 → EDBD 23:31 → ERH 23:31 → 2RSO 02-19 02:31
PROVIDERS: ADMIT Internal Medicine; ATTEND Internal Medicine
PROC: 027035Z Dilation of Coronary Artery, One Artery with Two Drug-eluting Intraluminal Devices, Percutaneous Approach (ICD-10-PCS; principal; 2017-02-22)
PROC: 4A023N7 Measurement of Cardiac Sampling and Pressure, Left Heart, Percutaneous Approach (ICD-10-PCS; 2017-02-22)
PROC: B2111ZZ Fluoroscopy of Multiple Coronary Arteries using Low Osmolar Contrast (ICD-10-PCS; 2017-02-22)
PROC: B2151ZZ Fluoroscopy of Left Heart using Low Osmolar Contrast (ICD-10-PCS; 2017-02-22)
DX: J44.1 Chronic obstructive pulmonary disease with (acute) exacerbation (principal); I50.31 Acute diastolic (congestive) heart failure; I67.4 Hypertensive encephalopathy; E11.69 Type 2 diabetes mellitus with other specified complication; I48.92 Unspecified atrial flutter; Z99.81 Dependence on supplemental oxygen; E87.5 Hyperkalemia; I11.0 Hypertensive heart disease with heart failure; I25.118 Atherosclerotic heart disease of native coronary artery with other forms of angina pectoris; I16.0 Hypertensive urgency; I35.8 Other nonrheumatic aortic valve disorders; E03.9 Hypothyroidism, unspecified; E78.00 Pure hypercholesterolemia, unspecified; E78.5 Hyperlipidemia, unspecified; G89.29 Other chronic pain; I73.9 Peripheral vascular disease, unspecified; Z79.82 Long term (current) use of aspirin; Z85.46 Personal history of malignant neoplasm of prostate; Z87.891 Personal history of nicotine dependence; I25.2 Old myocardial infarction; M25.552 Pain in left hip; N14.1 Nephropathy induced by other drugs, medicaments and biological substances; T50.8X5A Adverse effect of diagnostic agents, initial encounter; R74.0 Nonspecific elevation of levels of transaminase and lactic acid dehydrogenase [LDH]